=== PATIENT | female | born 1930 | race Caucasian/White ===

== ENCOUNTER 2020-05-02 14:11 | Inpatient (IN) | payer MEDICARE, OTHER ==
[~2020-05-02] VITALS: Ht 170.2 cm; Wt 62.4 kg
--- NOTE | 2020-05-02 14:31 | NUR ---
BREAK RN: PT JEANIE RAMSAY FROM [facility] D/T N/V/D. +BLOODY STOOL AND EMESIS PER EMS REPORT. SAMPLE PROVIDED BY [facility]. HX OF ALZHEIMERS. BASELINE ORIENTATION 1-2. PT CURRENTLY A&OX1. EMS STATED DENIES ANY CURRENT BLOOD THINNERS DENIES ANY RECENT FALLS. PT HAS CAST TO LEFT FOOT. EMS STATED HX OF BROKEN LEFT ANKLE UNKNOWN DURATION. 20 L AC. 4MG ZOFRAN. 250ML FLUID BOLUS. BS 152. PT ORIENTED TO ROOM AND LOCATION. MULTIPLE WARM BLANKETS PROVIDED.
[2020-05-02] MEDS ORDERED: LEVO25TA4 PO (14:37)
[2020-05-02] MEDS ORDERED: POTA500T PO (14:37)
[2020-05-02] MEDS ORDERED: BRIM5DRO3 EACHEYE (14:37)
[2020-05-02] MEDS ORDERED: LATA7.5D EACHEYE (14:37)
[2020-05-02] MEDS ORDERED: DORZ10DR26 EACHEYE (14:37)
[2020-05-02] MEDS ORDERED: ASPI81TA45 PO (14:37)
[2020-05-02] MEDS ORDERED: ATOR-2 PO (14:37)
[2020-05-02] MEDS ORDERED: DONE10TA7 PO (14:37)
--- NOTE | 2020-05-02 14:37 | NUR ---
BREAK RN: REPORT TO DENISSE FRIEND TO ASSUME PRIMARY CARE.
[2020-05-02] MEDS ORDERED: PANTOPRAZOLE 80 MG in SODIUM CHLORIDE 0.9% 50 ML IVPB ONE (15:00)
[2020-05-02] MEDS ORDERED: SODIUM CHLORIDE 0.9% 1,000ML IVBOLUS ONE (15:00)
[2020-05-02] MEDS ORDERED: PANTOPRAZOLE 80 MG in SODIUM CHLORIDE 0.9% 100 ML IV SCH (15:00)
[2020-05-02] MEDS ORDERED: ONDANSETRON 2MG/ML, 2ML IVPush ONE ×2 (15:00→20:00)
[2020-05-02 15:15] LABS: BASOPHILS % (AUTO) 0 % (0-1); EOSINOPHILS % (AUTO) 0 % (1-7); LYMPHOCYTES % (AUTO) 7 % (22-44); MEAN CORPUSCULAR HEMOGLOBIN 32.8 pg (27.0-34.8); MEAN CORPUSCULAR HGB CONC 33.3 g/dL (32.4-35.8); MEAN PLATELET VOLUME 8.4 fL (7.4-10.4); MONOCYTES % (AUTO) 6 % (2-9); NEUTROPHILS % (AUTO) 87 % (42-75); PLATELET COUNT 362 x10^3/uL (130-400); RED BLOOD COUNT 3.44 x10^6/uL (3.82-5.3); RED CELL DISTRIBUTION WIDTH 15.6 % (9.6-15.2)
[2020-05-02 15:21] LABS: ANION GAP 7 mmol/L (5-15); CALCIUM 8.8 mg/dL (8.5-10.1); CHLORIDE 111 mmol/L (98-107)
[2020-05-02 15:25] LABS: INTERNATIONAL NORMALIZED RATIO 1.04 (0.93-1.1); PROTHROMBIN TIME 11.1 Seconds (9.6-11.5)
[2020-05-02 15:26] LABS: ALANINE AMINOTRANSFERASE 74 U/L (12-78); ALKALINE PHOSPHATASE 99 U/L (45-117); BILIRUBIN,TOTAL 0.4 mg/dL (0.2-1.0); CREATININE 0.76 mg/dL (0.55-1.02); TOTAL PROTEIN 4.7 g/dL (6.4-8.2)
[2020-05-02 15:36] LABS: MD SCAN
--- NOTE | 2020-05-02 15:46 | NUR ---
Pt to imaging.
[2020-05-02] MEDS ORDERED: HALOPERIDOL 5 MG/ML ONE (16:19)
--- NOTE | 2020-05-02 16:25 | NUR ---
Pt to imaging. Per CT pt unable to hold still for imaging. Pt continually asking for water and food. This RN confirmed CT order with Jerome DICKERSON PA as pt has copy of POLST at bedside indicating treatment managment only. Pt medicated per MAY for CT.
[2020-05-02] MEDS ORDERED: HALOPERIDOL 5 MG/ML IM ONE (16:30)
--- NOTE | 2020-05-02 16:32 | NUR ---
TASK RN: SECOND PIV ACCESS OBTAINED, 22 L WRIST.
[2020-05-02] MEDS ORDERED: LORazepam 2 MG/ML, 1ML ONE ×3 (17:03→19:08)
--- NOTE | 2020-05-02 17:25 | NUR ---
Lower dentures removed and placed with personal belongings.
[2020-05-02] MEDS ORDERED: LORazepam 2 MG/ML, 1ML IVPush ONE ×3 (17:30→18:00)
[2020-05-02] MEDS ORDERED: LORazepam 1MG TABLET PO ONE (17:30)
--- NOTE | 2020-05-02 17:31 | NUR ---
CT called to let them know that pt is ready for imaging.
--- NOTE | 2020-05-02 17:34 | NUR ---
This RN and DENISSE Hutchison to do straight cath. Pt provided with full linen change. Positioned to comfort. Purewick in place. Fluids infusing. Pt became more irritated after Haldol. Pt medicated per MAY, pt drowsy now.
--- NOTE | 2020-05-02 18:05 | NUR ---
PER ER LAURO DOVE TO GIVE ATIVAN PRIOR TO CT. CT NOTIFIED THAT PATIENT WAS READY FOR SCAN.
[2020-05-02 18:19] LABS: MICROSCOPIC INDICATED
[2020-05-02] MEDS ORDERED: SODIUM CHLORIDE 0.9%, 500ML IVBOLUS ONE (18:30)
[2020-05-02] MEDS ORDERED: CEFTRIAXONE PMX 1GM/50ML 50 ML IV ONE (19:00)
[2020-05-02] MEDS ORDERED: ZIPRASIDONE 20 MG INJ IM ONE (19:08)
--- NOTE | 2020-05-02 19:29 | NUR ---
This RN to CT. Pt able to hold still, however, IV blew. Large bruise developed on L wrist. Immediate cold compress applied to reduce swelling. Pt back to room after attempting image. MD Elizondo made aware of POLST at bedside and that pt is comfort focused treatment.
--- NOTE | 2020-05-02 19:36 | NUR ---
MD Elizondo back to bedside. Report to DENISSE Linares. Pt resting in bed.
--- NOTE | 2020-05-02 19:43 | NUR ---
report from teena at bedside, pt uncomfortable/repositioned with comfort/bijan paw and, side rails up x 2 and md to bs for poc, pt to be comfort care. will monitor.
--- NOTE | 2020-05-02 19:45 | NUR ---
previous rn stopped protonix iv per md
[2020-05-02] MEDS ORDERED: MORPHINE SULFATE 4 MG/ML, 1ML ONE (19:47)
[2020-05-02] MEDS ORDERED: MORPHINE SULFATE 4 MG/ML, 1ML IVPush PRN (20:00)
--- NOTE | 2020-05-02 20:11 | NUR ---
new iv started, left wrist iv infil. and removed. pt medicated for flacc score. dentures in mouth, sejals at bs, will go up with pt. report to emi jones for 438
[2020-05-02] MEDS ORDERED: CEFTRIAXONE PMX 1GM/50ML 50 ML ONE (20:16)
--- NOTE | 2020-05-02 20:23 | NUR ---
pt maryan berry has her glasses in in. morphine admin, pt now sleeping, rr even,flacc 0.
[2020-05-02 20:45] VITALS: BP 110/73
[2020-05-02 21:00] VITALS: BP 110/73
[2020-05-03] MEDS ORDERED: LORazepam 2 MG/ML, 1ML IVPush PRN (00:30)
[2020-05-03] MEDS ORDERED: ATROPINE OPHTH SOLN 1%, 5ML PO PRN (00:30)
[2020-05-03] MEDS ORDERED: SCOPOLAMINE 1MG PATCH TD PRN (00:30)
[2020-05-03] MEDS ORDERED: ONDANSETRON 2MG/ML, 2ML IVPush PRN (00:30)
[2020-05-03] MEDS ORDERED: MORPHINE SULFATE 4 MG/ML, 1ML IVPush PRN (00:30)
[2020-05-03 01:34] VITALS: BP 105/67
[2020-05-03 07:16] VITALS: BP 116/70
[2020-05-03] MEDS ORDERED: LEVOTHYROXINE 75 MCG TABLET PO SCH (09:00)
[2020-05-03] MEDS ORDERED: BRIMONIDINE TART. OPHTH 0.2%, 5ML EACHEYE SCH (09:00)
[2020-05-03] MEDS ORDERED: POTASSIUM ACID PHOSPHATE 500 MG TABLET.SOL PO SCH (09:00)
[2020-05-03] MEDS ORDERED: ATORVASTATIN 40 MG TABLET PO SCH (09:00)
[2020-05-03] MEDS ORDERED: DORZOLAMIDE OPHTH 2%, 10ML EACHEYE SCH (09:00)
[2020-05-03] MEDS ORDERED: LATANOPROST OPHTH 0.005%, 2.5ML EACHEYE SCH (21:00)
[2020-05-03] MEDS ORDERED: DONEPEZIL 10 MG TABLET PO SCH (21:00)
== END 2020-05-03 12:43 | disposition hospice, inpatient (51) | DRG 378 ==
LOC: ED 20:02 → EDIP 20:12 → 4NW 20:48
PROVIDERS: ADMIT Internal Medicine; ATTEND Internal Medicine
PROC: 0T9B70Z Drainage of Bladder with Drainage Device, Via Natural or Artificial Opening (ICD-10-PCS; principal; 2020-05-02)
DX: K92.0 Hematemesis (principal); N39.0 Urinary tract infection, site not specified; D50.0 Iron deficiency anemia secondary to blood loss (chronic); E78.00 Pure hypercholesterolemia, unspecified; E03.9 Hypothyroidism, unspecified; E78.5 Hyperlipidemia, unspecified; F02.80 Dementia in other diseases classified elsewhere, unspecified severity, without behavioral disturbance, psychotic disturbance, mood disturbance, and anxiety; G30.9 Alzheimer's disease, unspecified; H40.9 Unspecified glaucoma; Z51.5 Encounter for palliative care; Z66 Do not resuscitate; Z88.5 Allergy status to narcotic agent
CPT/HCPCS: 36415; 74176; 80053; 81001; 83605; 84145; 85025; 85610; 85730; 86850; 86900; 87040; 87077; 87086; 87186; 93005; 96361; 96365; 96366; 96372; 96375; 99285; G0378; J0696; C9113; J1630; J2060; J2270; J7030